=== PATIENT | male | born 2000 | race Caucasian/White ===

== ENCOUNTER 2018-07-29 03:02 | Emergency (ER) | payer BC ==
[~2018-07-29] VITALS: Ht 180.3 cm; Wt 79.2 kg
[2018-07-29 03:07] VITALS: BP 121/77
[2018-07-29] MEDS ORDERED: ONDANSETRON 2MG/ML, 2ML ONE (03:27)
[2018-07-29] MEDS ORDERED: ONDANSETRON 2MG/ML, 2ML IVPush ONE (03:30)
[2018-07-29] MEDS ORDERED: SODIUM CHLORIDE 0.9% 1,000ML IVBOLUS ONE (03:30)
[2018-07-29] MEDS ORDERED: SODIUM CHLORIDE FLUSH 10ML SYR IVF ONE (03:30)
== END 2018-07-29 04:13 | disposition home or self-care (01) ==
LOC: ED 03:39
DX: F10.120 Alcohol abuse with intoxication, uncomplicated (principal); R11.2 Nausea with vomiting, unspecified; E86.0 Dehydration
CPT/HCPCS: 96361; 96374; 99284; J2405; J7030